=== PATIENT | female | born 1970 | race Caucasian/White ===

== ENCOUNTER → 2017-06-14 | Outpatient (CLI) | payer OTHER | LOC: BMCIMAGING 07:56 | PROVIDERS: ATTEND Family Medicine | DX: Z12.31 Encounter for screening mammogram for malignant neoplasm of breast (principal) | CPT/HCPCS: G0202 ==

== ENCOUNTER 2017-07-03 12:24 | Emergency (ER) | payer OTHER ==
--- NOTE | 2017-07-03 13:14 | EDPHY ---
H & P Stated Complaint: skiing thurs/bad fall/landed on head/heard crunch pain c spine Time Seen by Provider: 07/03/17 13:01 HPI/ROS: CHIEF COMPLAINT: Neck pain following fall skiing HISTORY OF PRESENT ILLNESS: The patient presents to the ED with complaints of acute neck pain following a fall that occurred while skiing 2 days ago. The patient denies any acute numbness or weakness. She denies headache or loss of consciousness. She is not anticoagulated. The patient does have a history of multiple sclerosis and is on immunotherapy for this condition. The patient denies any chest pain, abdominal pain or additional traumatic complaints. She has moderate pain in her mid cervical spine. REVIEW OF SYSTEMS: A comprehensive 10 point review of systems is otherwise negative aside from elements mentioned in the history of present illness. Source: Patient, Family - Personal History LMP (Females 10-55): 22-28 Days Ago Current Tetanus/Diphtheria Vaccine: Yes - Medical/Surgical History Hx Asthma: No Hx Chronic Respiratory Disease: No Hx Diabetes: No Hx Cardiac Disease: No Hx Renal Disease: No Hx Cirrhosis: No Hx Alcoholism: No Hx HIV/AIDS: No Hx Splenectomy or Spleen Trauma: No Other PMH: MS - Social History Smoking Status: Never smoked - Physical Exam Exam: General Appearance: Alert, no distress Head: Atraumatic Eyes: Pupils equal, round, reactive ENT, Mouth: No hemotympanum, no oral trauma Neck: Cervical collar applied at triage, patient does have midline cervical spine tenderness in the lower cervical spine Respiratory: No chest wall tender, subcutaneous air, lungs clear bilaterally Cardiovascular: Regular rate and rhythm Abdomen: Abdomen is soft and nontender, pelvis stable Skin: No lacerations, No abrasion Back: No midline T/L/S pain Extremities: Nontender, full range of motion Neurological: 5/5 strength bilateral upper lower extremities, normal reflexes, no decreased sensation, GCS 15 Constitutional: Initial Vital Signs Temperature (C) 36.8 C 07/03/17 12:31 Heart Rate 86 07/03/17 12:31 Respiratory Rate 16 07/03/17 12:31 Blood Pressure 119/90 H 07/03/17 12:31 O2 Sat (%) 98 07/03/17 12:31 O2 Delivery Mode Room Air Allergies/Adverse Reactions: No Known Allergies Allergy (Verified 07/03/17 12:31) Home Medications: Medication Instructions Recorded [facility] 04/20/16 Medical Decision Making - Diagnostics Imaging Results: Imaging Impressions Cervical Spine CT 07/03/17 13:13 Impression:1. No acute posttraumatic abnormality identified. 2. Degenerative changes described above. Final concordant results called to Tashi Roman M.D. at 13:50 p.m.. General information for patients regarding this examination can be found at [email or web address]. If you have questions or comments about this report, please contact me at [phone] (hospital) or [phone] (cell). ED Course/Re-evaluation: The patient presents to the ED for evaluation of cervical spine pain following trauma. She was noted to have midline cervical spine tenderness on exam. The patient was taken for CT scan of her cervical spine which demonstrated no evidence of an acute fracture. She was noted to be neurologically intact without evidence of a spinal cord injury. The patient was re-evaluated at 2:00 p.m.. She is neurologically intact. The patient will be placed in a [place] J collar for possible cervical strain. She will follow up with our neurosurgeon Dr. Baldwin for any ongoing symptoms. She does understand return to the ED for any acute numbness or weakness, worsening pain or other concerns. Differential Diagnosis: Differential diagnosis considered includes cervical spine fracture, spinal cord injury, cervical strain Departure - Departure Disposition: Home, Routine, Self-Care Clinical Impression: Cervical strain, acute Condition: Good Instructions: Cervical Strain (ED) Additional Instructions: 1. Please wear neck brace while having any neck pain. 2. Return to the ED for any acutely worsening pain, numbness or weakness. 3. Take Ibuprofen or Motrin 600 mg by mouth three times a day. 4. Please schedule a follow-up appointment with a neurosurgeon you have been referred to for evaluation of any persistent pain. Referrals: Ruth Luong MD [Primary Care Provider] - As per Instructions Keri Baldwin MD [Medical Doctor] - As per Instructions
[2017-07-03 14:32] VITALS: BP 109/76; PULSE 91; RESP 18; TEMP 98.8; O2SAT 95
== END 2017-07-03 14:44 | disposition home or self-care (01) ==
DX: S16.1XXA Strain of muscle, fascia and tendon at neck level, initial encounter (principal); V00.321A Fall from snow-skis, initial encounter; Y99.8 Other external cause status; Y93.24 Activity, cross country skiing

== ENCOUNTER → 2018-06-21 | Outpatient (CLI) | payer OTHER | LOC: BMCIMAGING 08:20 | PROVIDERS: ATTEND Family Medicine | DX: Z12.31 Encounter for screening mammogram for malignant neoplasm of breast (principal) ==

== ENCOUNTER → 2018-06-24 | Outpatient (CLI) | payer OTHER | LOC: CIMAGING 12:57 | PROVIDERS: ATTEND Family Medicine | DX: R92.8 Other abnormal and inconclusive findings on diagnostic imaging of breast (principal) ==